=== PATIENT | female | born 1995 | race Caucasian/White ===

== ENCOUNTER → 2025-09-30 14:49 | Outpatient (CLI) | payer OTHER, SELFPAY ==
[2025-09-30 20:20] LABS: Urine N gonorrhoeae NOT DETECTED
[2025-09-30 20:22] LABS: Urine Chlamydia NOT DETECTED
== END ==
PROVIDERS: PCP Nurse Practitioner Family; Visit Provider Obstetrics & Gynecology
DX: Z11.3 Encounter for screening for infections with a predominantly sexual mode of transmission (principal)
CPT/HCPCS: 87491; 87591

== ENCOUNTER → 2025-09-30 15:25 | Outpatient (CLI) | payer OTHER, SELFPAY ==
[2025-09-30 16:14] LABS: Add Manual Diff / Slide Review NO; Hematocrit 36.2 % (36-46); Hemoglobin 12.4 g/dL (12.0-16.0); Lymphocytes Absolute Auto 2100 /uL (1100-4500); Mean Corpuscular HGB Conc 34.2 % (30-36); Mean Corpuscular Hemoglobin 30.8 PG (26-34); Mean Corpuscular Volume 90.1 fL (80-100); Platelet Count 278 X10^3/uL (150-400)
[2025-09-30 16:34] LABS: Hemoglobin A1C% w Est Avg Glu 4.4 % (4.0-6.0)
[2025-10-01 16:54] LABS: Hepatitis B Surface Antigen NEGATIVE s/c (NEGATIVE)
[2025-10-01 17:02] LABS: HIV 1 & 2 Ab/Ag 4th Gen Combo NEGATIVE (NEGATIVE)
[2025-10-01 17:09] LABS: Hep C Virus Ab w/Reflex Quant NEGATIVE s/c (NEGATIVE)
== END ==
PROVIDERS: PCP Nurse Practitioner Family; Referring Provider Obstetrics & Gynecology; Visit Provider Obstetrics & Gynecology
DX: Z34.80 Encounter for supervision of other normal pregnancy, unspecified trimester (principal); E28.2 Polycystic ovarian syndrome
CPT/HCPCS: 36415; 80055; 83036; 86787; 86803; 86850; 86900; 86901; 87077; 87086; 87147; 87389

== ENCOUNTER → 2025-10-12 11:13 | Outpatient (CLI) | payer OTHER, SELFPAY | PROVIDERS: PCP Nurse Practitioner Family; Visit Provider Obstetrics & Gynecology | DX: N89.8 Other specified noninflammatory disorders of vagina (principal) | CPT/HCPCS: 81514 ==